=== PATIENT | female | born 1995 | race Caucasian/White ===

== ENCOUNTER 2019-11-24 13:43 | Inpatient (IN) | payer OTHER ==
[~2019-11-24] VITALS: Ht 160 cm; Wt 111.3 kg
[2019-11-29] MEDS ORDERED: OXYTOCIN 30U/ 0.9% NaCL 500ML 500 ML IV ONE (05:10)
[2019-11-29] MEDS ORDERED: D5%-LACTATED RINGERS 1,000 ML IV SCH (05:10)
[2019-11-29] MEDS ORDERED: NEWBORN KIT ONE (05:12)
[2019-11-29] MEDS ORDERED: MISOPROSTOL 200 MCG TABLET ONE (05:12)
[2019-11-29] MEDS ORDERED: LIDOCAINE 1%, 20ML ONE (05:12)
[2019-11-29] MEDS ORDERED: OXYTOCIN 30U/ 0.9% NaCL 500ML 500 ML ONE ×2 (05:12→15:04)
[2019-11-29 05:19] VITALS: BP 123/69
[2019-11-29] MEDS ORDERED: PREN1TAB62 PO (05:19)
[2019-11-29] MEDS ORDERED: TERBUTALINE 1 MG/ML, 1ML IVPush PRN (05:30)
[2019-11-29] MEDS ORDERED: FENTANYL PF 100 MCG/2ML IV PRN (05:30)
[2019-11-29] MEDS ORDERED: ONDANSETRON 2MG/ML, 2ML IVPush PRN (05:30)
[2019-11-29] MEDS ORDERED: CALCIUM CARBONATE 500 MG TAB.CHEW PO PRN (05:30)
[2019-11-29] MEDS ORDERED: TERBUTALINE 1 MG/ML, 1ML SQ PRN (05:30)
[2019-11-29] MEDS: LACTATED RINGERS 1,000 ML IV SCH ×2 (05:39→13:45)
[2019-11-29 06:21] LABS: MEAN CORPUSCULAR HEMOGLOBIN 24.1 pg (27.0-34.8); MEAN CORPUSCULAR HGB CONC 31.5 g/dL (32.4-35.8); MEAN CORPUSCULAR VOLUME 76.6 fL (80-100); MEAN PLATELET VOLUME 10.2 fL (7.4-10.4); PLATELET COUNT 247 x10^3/uL (130-400); RED BLOOD COUNT 4.57 x10^6/uL (3.82-5.3); RED CELL DISTRIBUTION WIDTH 16.7 % (9.6-15.2)
[2019-11-29] MEDS ORDERED: OXYTOCIN 30U/ 0.9% NaCL 500ML 500 ML IV PRN (06:21)
[2019-11-29 07:15] LABS: MD YES
[2019-11-29 07:17] LABS: BANDS%(MANUAL) 2 % (0-7); EOS% (MANUAL) 1 % (1-7); LYMPHS% (MANUAL) 13 % (22-44); MONOS% (MANUAL) 5 % (2-9); SEGS% (MANUAL) 79 % (42-75)
[2019-11-29 07:18] LABS: ANISOCYTOSIS 1+; MICROCYTOSIS 1+
[2019-11-29 07:19] LABS: <PLATELET ESTIMATE> ADEQUATE; LARGE PLATELETS 1+
[2019-11-29 07:21] LABS: HYPOCHROMIA 1+
[2019-11-29] MEDS ORDERED: FENTANYL PF 100 MCG/2ML ONE ×3 (09:40→12:01)
[2019-11-29] MEDS: FENTANYL PF 100 MCG/2ML IVPush PRN ×3 (09:42→12:02)
[2019-11-29] MEDS ORDERED: SIMETHICONE 80 MG CHEW TAB PO PRN (15:00)
[2019-11-29] MEDS ORDERED: OXYcodone/APAP 5/325MG TABLET PO PRN ×2 (15:00)
[2019-11-29] MEDS: OXYTOCIN 30U/ 0.9% NaCL 500ML 500 ML IV SCH (15:00)
[2019-11-29] MEDS ORDERED: MISOPROSTOL 200 MCG TABLET PR PRN (15:00)
[2019-11-29] MEDS ORDERED: MEASLES,MUMPS&RUBELLA VACC/PF 0.5 ML SQ-VACC PRN (15:00)
[2019-11-29] MEDS ORDERED: ACETAMINOPHEN 325 MG TABLET PO PRN ×2 (15:00)
[2019-11-29] MEDS ORDERED: CARBOPROST TROMETHAMINE 250 MCG/ML, 1ML IM PRN (15:00)
[2019-11-29] MEDS ORDERED: DIPH,PERTUSS(ACELL),TET VAC/PF NC IM-VACC PRN (15:00)
[2019-11-29] MEDS ORDERED: METHYLERGONOVINE 0.2 MG/ML IM PRN (15:00)
[2019-11-29] MEDS ORDERED: IBUPROFEN 600 MG TABLET ONE (15:04)
[2019-11-29] MEDS: IBUPROFEN 600 MG TABLET PO PRN ×2 (15:09→20:53)
[2019-11-29 17:00] VITALS: BP 110/70
[2019-11-29 20:00] VITALS: BP 113/68
[2019-11-29] MEDS: DOCUSATE 100 MG CAPSULE PO PRN (20:54)
[2019-11-29 23:19] LABS: BASOPHILS # (AUTO) 0.01 x10^3/uL (0-0.1); BASOPHILS % (AUTO) 0 % (0-1); EOSINOPHILS # (AUTO) 0.01 x10^3/uL (0-0.4); EOSINOPHILS % (AUTO) 0 % (1-7); LYMPHOCYTES # (AUTO) 2.22 x10^3/uL (1-3.4); LYMPHOCYTES % (AUTO) 16 % (22-44); MD NO; MEAN CORPUSCULAR HEMOGLOBIN 24.1 pg (27.0-34.8); MEAN CORPUSCULAR HGB CONC 31.2 g/dL (32.4-35.8); MEAN CORPUSCULAR VOLUME 77.1 fL (80-100); MEAN PLATELET VOLUME 10.2 fL (7.4-10.4); MONOCYTES # (AUTO) 1.06 x10^3/uL (0.2-0.8); MONOCYTES % (AUTO) 8 % (2-9); NEUTROPHILS # (AUTO) 10.87 x10^3/uL (1.8-6.8); NEUTROPHILS % (AUTO) 77 % (42-75); PLATELET COUNT 260 x10^3/uL (130-400); RED BLOOD COUNT 3.78 x10^6/uL (3.82-5.3); RED CELL DISTRIBUTION WIDTH 16.9 % (9.6-15.2)
[2019-11-30 00:10] VITALS: BP 114/69
[2019-11-30] MEDS: OXYTOCIN 30U/ 0.9% NaCL 500ML 500 ML IV SCH (01:00)
[2019-11-30 03:50] VITALS: BP 100/63
[2019-11-30] MEDS: IBUPROFEN 600 MG TABLET PO PRN ×2 (03:53→10:54)
[2019-11-30 07:20] VITALS: BP 113/73
[2019-11-30] MEDS ORDERED: PRENATAL VIT/IRON/FA 1 EACH TABLET PO SCH (09:00)
[2019-11-30] MEDS: DOCUSATE 100 MG CAPSULE PO PRN (10:54)
[2019-11-30 12:31] VITALS: BP 110/75
== END 2019-11-30 19:06 | disposition home or self-care (01) | DRG 807 ==
LOC: LDIP 11-29 05:05 → 2NW 11-29 16:56
PROVIDERS: ADMIT Obstetrics & Gynecology Maternal & Fetal Medicine; ATTEND Obstetrics & Gynecology Maternal & Fetal Medicine
PROC: 0KQM0ZZ Repair Perineum Muscle, Open Approach (ICD-10-PCS; principal; 2019-11-29)
PROC: 10E0XZZ Delivery of Products of Conception, External Approach (ICD-10-PCS; 2019-11-29)
PROC: 3E0234Z Introduction of Serum, Toxoid and Vaccine into Muscle, Percutaneous Approach (ICD-10-PCS; 2019-11-29)
PROC: 3E0134Z Introduction of Serum, Toxoid and Vaccine into Subcutaneous Tissue, Percutaneous Approach (ICD-10-PCS; 2019-11-29)
DX: O48.0 Post-term pregnancy (principal); Z37.0 Single live birth; O70.1 Second degree perineal laceration during delivery; Z3A.40 40 weeks gestation of pregnancy; Z23 Encounter for immunization
CPT/HCPCS: 36415; 85025; 86592; 86850; 86900; 87635; G0378; J3010; J2590; J7120

== ENCOUNTER 2020-03-22 22:00 | Observation (INO) | payer OTHER ==
[~2020-03-22] VITALS: Ht 160 cm; Wt 100.8 kg
[~2020-03-22 22:00] MED LIST: PREN1TAB62 PO
--- NOTE | 2020-03-22 22:35 | NUR ---
Walks to br, urine sample provided and sent. Lab here drawing blood. Waiting for ultrasound. Pt in NAD.
--- NOTE | 2020-03-22 22:45 | NUR ---
Pt to ultrasound via jabier with tech.
[2020-03-22 22:54] LABS: BASOPHILS % (AUTO) 0 % (0-1); EOSINOPHILS % (AUTO) 1 % (1-7); LYMPHOCYTES % (AUTO) 16 % (22-44); MEAN CORPUSCULAR HEMOGLOBIN 26.4 pg (27.0-34.8); MEAN CORPUSCULAR HGB CONC 32.9 g/dL (32.4-35.8); MEAN PLATELET VOLUME 8.6 fL (7.4-10.4); MONOCYTES % (AUTO) 7 % (2-9); NEUTROPHILS % (AUTO) 77 % (42-75); PLATELET COUNT 279 x10^3/uL (130-400); RED BLOOD COUNT 5.13 x10^6/uL (3.82-5.3); RED CELL DISTRIBUTION WIDTH 16.3 % (9.6-15.2)
[2020-03-22 22:57] LABS: MICROSCOPIC INDICATED
[2020-03-22 22:58] LABS: HCG UR SG 1.043 (1.003-1.030)
[2020-03-22 23:02] LABS: ALANINE AMINOTRANSFERASE 175 U/L (12-78); ALBUMIN 3.9 g/dL (3.4-5.0); ANION GAP 5 mmol/L (5-15); CALCIUM 8.4 mg/dL (8.5-10.1); CHLORIDE 111 mmol/L (98-107); CREATININE 0.82 mg/dL (0.55-1.02)
[2020-03-22 23:07] LABS: ALKALINE PHOSPHATASE 153 U/L (45-117); BILIRUBIN,TOTAL 1.7 mg/dL (0.2-1.0); TOTAL PROTEIN 7.8 g/dL (6.4-8.2)
--- NOTE | 2020-03-22 23:31 | NUR ---
Back from ultrasound, NAD. Waiting for results/re-eval.
[2020-03-22 23:37] LABS: MD SCAN
[2020-03-23] MEDS ORDERED: ONDANSETRON 2MG/ML, 2ML IVPush PRN (00:30)
[2020-03-23] MEDS ORDERED: SODIUM CHLORIDE 0.9% 1,000 ML IV ONE (00:30)
[2020-03-23] MEDS ORDERED: MORPHINE SULFATE 4 MG/ML, 1ML IVPush PRN (00:30)
[2020-03-23] MEDS ORDERED: ONDANSETRON 2MG/ML, 2ML ONE (00:50)
[2020-03-23] MEDS ORDERED: MORPHINE SULFATE 4 MG/ML, 1ML ONE (00:50)
[2020-03-23] MEDS ORDERED: ACETAMINOPHEN 325 MG TABLET PO PRN (01:00)
[2020-03-23] MEDS ORDERED: hydrALAzine 20 MG/ML, 1ML IVPush PRN (01:00)
--- NOTE | 2020-03-23 01:06 | NUR ---
Takes no meds, apperas relatively comfortable is up ambulatory. Requested pain meds, morphine/zofran given. Updated VS, IVF NS infusing. Report to Floor, pt to be tx with all belongings. 0107: Reports feeling less pain since morphine. VSS.
[2020-03-23 01:57] VITALS: BP 100/64
[2020-03-23] MEDS: LACTATED RINGERS 1,000 ML IV SCH ×3 (02:09→17:07)
[2020-03-23] MEDS: HYDROcodone/APAP 5/325 TABLET PO PRN ×2 (02:13→10:13)
[2020-03-23 07:02] LABS: ALBUMIN 3.5 g/dL (3.4-5.0); ANION GAP 5 mmol/L (5-15); CALCIUM 8.2 mg/dL (8.5-10.1); CHLORIDE 115 mmol/L (98-107)
[2020-03-23 07:06] LABS: ALANINE AMINOTRANSFERASE 208 U/L (12-78); ALKALINE PHOSPHATASE 136 U/L (45-117); BILIRUBIN,TOTAL 0.8 mg/dL (0.2-1.0); CREATININE 0.57 mg/dL (0.55-1.02); TOTAL PROTEIN 6.8 g/dL (6.4-8.2)
[2020-03-23 07:22] VITALS: BP 101/68
[2020-03-23] MEDS: morphine SULFATE 10 MG/ML, 1ML IVPush PRN ×3 (11:56→20:42)
[2020-03-23] MEDS: ONDANSETRON 2MG/ML, 2ML IVPush PRN ×2 (15:07→21:12)
[2020-03-23 15:50] VITALS: BP 108/77
[2020-03-23 19:31] VITALS: BP 109/71
[2020-03-24 03:22] VITALS: BP 97/62
[2020-03-24] MEDS ORDERED: MIDAZOLAM 1 MG/ML, 2ML ONE (04:32)
[2020-03-24] MEDS ORDERED: FENTANYL PF 250 MCG/5ML ONE (04:32)
[2020-03-24] MEDS ORDERED: DEXAMETHASONE 4 MG/ML, 5ML ONE (04:49)
[2020-03-24] MEDS ORDERED: LABETALOL 5MG/ML, 20ML IV PRN (05:00)
[2020-03-24] MEDS ORDERED: FENTANYL PF 100 MCG/2ML IV PRN (05:00)
[2020-03-24] MEDS ORDERED: MEPERIDINE/PF 25MG/0.5ML IVPush PRN (05:00)
[2020-03-24] MEDS ORDERED: HALOPERIDOL 5 MG/ML IV PRN (05:00)
[2020-03-24] MEDS ORDERED: OXYcodone 5 MG/5 ML ORAL.SOL UDC PO PRN (05:00)
[2020-03-24] MEDS ORDERED: hydrALAzine 20 MG/ML, 1ML IV PRN (05:00)
[2020-03-24] MEDS ORDERED: PROMETHAZINE 25 MG/ML, 1ML IVPush PRN (05:00)
[2020-03-24] MEDS ORDERED: DIPHENHYDRAMINE 50 MG/ML, 1ML IVPush PRN (05:00)
[2020-03-24] MEDS ORDERED: HYDROcodone/APAP 7.5-325MG/15ML UDC PO PRN (05:00)
[2020-03-24] MEDS ORDERED: HYDROmorphone 1 MG/ML, 1ML INJ IVPush PRN (05:00)
[2020-03-24] MEDS ORDERED: EPINEPHRINE 1 MG/ML, 1ML ONE (05:07)
[2020-03-24] MEDS ORDERED: BUPIVACAINE/PF 0.5% ONE ×2 (05:07→05:22)
[2020-03-24] MEDS ORDERED: KETOROLAC 30 MG/1 ML ONE (05:11)
[2020-03-24] MEDS ORDERED: CEFAZOLIN 1,000 MG ONE (05:19)
[2020-03-24] MEDS ORDERED: ROCURONIUM 10MG/ML,5ML ONE (05:19)
[2020-03-24] MEDS ORDERED: CEFOTETAN 1 GM ONE (05:19)
[2020-03-24] MEDS ORDERED: NEOSTIGMINE 1 MG/ML, 10ML ONE (05:19)
[2020-03-24] MEDS ORDERED: SUCCINYLCHOLINE 20 MG/ML, 10ML ONE (05:19)
[2020-03-24] MEDS ORDERED: ONDANSETRON 2MG/ML, 2ML ONE (05:19)
[2020-03-24] MEDS ORDERED: GLYCOPYRROLATE 0.2MG/1ML, 5ML ONE (05:19)
[2020-03-24] MEDS ORDERED: PROPOFOL 10 MG/ML, 20ML ONE (05:19)
[2020-03-24] MEDS ORDERED: BUPIVACAINE/PF 0.5% INFIL ONE (05:41)
[2020-03-24] MEDS ORDERED: ACETAMINOPHEN 650 MG/20.3 ML UDC ONE (05:42)
[2020-03-24] MEDS ORDERED: MEPERIDINE/PF 25MG/ML,1ML ONE (05:42)
[2020-03-24] MEDS ORDERED: OXYcodone 5 MG/5 ML ORAL.SOL UDC ONE (05:43)
[2020-03-24] MEDS ORDERED: PROMETHAZINE 25 MG/ML, 1ML ONE (05:48)
[2020-03-24] MEDS ORDERED: ACETAMINOPHEN 650 MG/20.3 ML UDC PO PRN (06:00)
[2020-03-24 07:21] LABS: BASOPHILS % (AUTO) 0 % (0-1); EOSINOPHILS % (AUTO) 2 % (1-7); LYMPHOCYTES % (AUTO) 23 % (22-44); MEAN CORPUSCULAR HEMOGLOBIN 26.3 pg (27.0-34.8); MEAN CORPUSCULAR HGB CONC 32.5 g/dL (32.4-35.8); MEAN PLATELET VOLUME 8.4 fL (7.4-10.4); MONOCYTES % (AUTO) 4 % (2-9); NEUTROPHILS % (AUTO) 71 % (42-75); PLATELET COUNT 255 x10^3/uL (130-400); RED CELL DISTRIBUTION WIDTH 16.4 % (9.6-15.2)
[2020-03-24 07:24] LABS: INTERNATIONAL NORMALIZED RATIO 1.01 (0.93-1.1); PROTHROMBIN TIME 10.7 Seconds (9.6-11.5)
[2020-03-24 07:26] LABS: MD NO
[2020-03-24] MEDS: morphine SULFATE 10 MG/ML, 1ML IVPush PRN (07:29)
[2020-03-24 07:31] LABS: CHLORIDE 109 mmol/L (98-107)
[2020-03-24 07:38] LABS: ALANINE AMINOTRANSFERASE 132 U/L (12-78); ALBUMIN 3.3 g/dL (3.4-5.0); ALKALINE PHOSPHATASE 119 U/L (45-117); ANION GAP 6 mmol/L (5-15); BILIRUBIN,TOTAL 0.5 mg/dL (0.2-1.0); CALCIUM 8.3 mg/dL (8.5-10.1); CREATININE 0.97 mg/dL (0.55-1.02); TOTAL PROTEIN 6.5 g/dL (6.4-8.2)
[2020-03-24 07:53] VITALS: BP 92/62
[2020-03-24] MEDS: HYDROcodone/APAP 5/325 TABLET PO PRN ×2 (12:25→18:29)
[2020-03-24 12:36] VITALS: BP 108/71
[2020-03-24 19:22] VITALS: BP 101/65
[2020-03-25 01:01] VITALS: BP 98/63
[2020-03-25 05:41] LABS: MEAN CORPUSCULAR HEMOGLOBIN 26.7 pg (27.0-34.8); MEAN CORPUSCULAR HGB CONC 33.1 g/dL (32.4-35.8); MEAN PLATELET VOLUME 8.4 fL (7.4-10.4); PLATELET COUNT 270 x10^3/uL (130-400); RED BLOOD COUNT 4.29 x10^6/uL (3.82-5.3); RED CELL DISTRIBUTION WIDTH 16.4 % (9.6-15.2)
[2020-03-25 05:50] LABS: ANION GAP 4 mmol/L (5-15); CALCIUM 8.4 mg/dL (8.5-10.1); CHLORIDE 111 mmol/L (98-107); CREATININE 0.66 mg/dL (0.55-1.02)
[2020-03-25 06:28] LABS: MD YES
[2020-03-25 06:30] LABS: EOS#(MANUAL) 0.26 x10^3/uL (0.0-0.4); EOS% (MANUAL) 4 % (1-7); LYMPH#(MANUAL) 3.37 x10^3/uL (1-3.4); LYMPHS% (MANUAL) 51 % (22-44); MONOS#(MANUAL) 0.13 x10^3/uL (0.3-2.7); MONOS% (MANUAL) 2 % (2-9); REACTIVE LYMPHS % (MANUAL) 3 % (0-0); SEG#(MANUAL) 2.64 x10^3/uL (1.8-6.8); SEGS% (MANUAL) 40 % (42-75)
[2020-03-25 06:31] LABS: <PLATELET ESTIMATE> ADEQUATE; <PLT MORPHOLOGY> NORMAL PLT MORPH; ANISOCYTOSIS 1+
[2020-03-25 06:45] VITALS: BP 100/66
[2020-03-25] MEDS: HYDROcodone/APAP 5/325 TABLET PO PRN ×2 (09:32→16:53)
[2020-03-25 12:36] VITALS: BP 106/71
[2020-03-25] MEDS ORDERED: HYDR-3237 PO (16:19)
== END 2020-03-25 21:00 | disposition home or self-care (01) ==
LOC: ED 22:30 → INTOOBSV 03-23 00:31 → EDIP 03-23 00:31 → 3N 03-23 01:53
PROVIDERS: ADMIT Family Medicine; ATTEND Internal Medicine
DX: K80.62 Calculus of gallbladder and bile duct with acute cholecystitis without obstruction (principal); Z20.828 Contact with and (suspected) exposure to other viral communicable diseases; R79.89 Other specified abnormal findings of blood chemistry; D72.829 Elevated white blood cell count, unspecified; R82.71 Bacteriuria; E66.9 Obesity, unspecified; R11.2 Nausea with vomiting, unspecified; E86.0 Dehydration; R74.01 Elevation of levels of liver transaminase levels; Z68.37 Body mass index [BMI] 37.0-37.9, adult; Z79.899 Other long term (current) drug therapy
CPT/HCPCS: 36415; 47562; 74181; 76700; 80048; 80053; 81001; 81025; 83690; 84703; 85025; 85610; 87086; 87635; 88304; 93005; 96361; 96374; 96375; 96376; 99285; G0378; J0171; J0330; J1100; J1885; J2175; J2250; J2270; J2405; J2550; J2704; J2710; J3010; J7030; J7120; S0020; J0690